=== PATIENT | female | born 1985 | race African-American/Black ===

== ENCOUNTER 2020-11-01 17:14 | Inpatient (IN) ==
[2020-11-01 19:09] LABS: Basophils % 0.4 % (0.0-0.8); Eosinophils # 0.1 10*3/uL (0.0-0.87); Eosinophils % 1.3 % (0.00-10.9); Hematocrit 31.1 VOL% (35.7-47.0); Hemoglobin 9.9 GM/DL (12.0-16.0); Immature Granulocytes % 0.9 %; Immature Granulocytes Absolute 0.05 #; Lymphocytes # 1.5 10*3/uL (1.4-4.0); Lymphocytes % 27.4 % (21.3-54.2); Mean Corpuscular HGB Conc 31.8 GM/DL (32-36); Mean Corpuscular Volume 87.4 FL (87-102); Mean Platelet Volume 10.3 FL (9.6-12.0); Monocytes % 13.5 % (1.7-12.7); Neutrophils % 56.5 % (38.7-73.9); Platelet Count 278 T/CUMM (130-400); Red Blood Count 3.56 MC/CUMM (3.8-5.5); Red Cell Distribution Width 16.3 % (9.3-17.3); White Blood Count 5.5 T/CUMM (4-12)
[2020-11-01 19:21] LABS: Alanine Aminotransferase 17 U/L (13-56); Albumin 2.5 G/DL (3.4-5.0); Alkaline Phosphatase 140 U/L (45-117); Aspartate Amino Transferase 20 U/L (0-37); Bilirubin,Total < 0.39 MG/DL (0.2-1.0); Blood Urea Nitrogen 6 MG/DL (7-18); Calcium 8.5 MG/DL (8.5-10.1); Carbon Dioxide 24 MMOL/L (21-32); Estimated Glom Filtration Rate 165 ML/MIN; Glucose 69 MG/DL (74-106); Potassium 3.8 MMOL/L (3.5-5.1); Sodium 136 MMOL/L (136-145); Total Protein 6.8 G/DL (6.4-8.2); Uric Acid 4.3 MG/DL (2.6-6.0)
[2020-11-01 19:21] LABS: Protein/Creatinine Ratio,Urine 0.2 RATIO
[2020-11-01 20:32] LABS: INR 0.9; PT Patient Result 9.8 SECS (10.5-12.0); Partial Thromboplastin Time 38.5 SECS (23.9-33.8)
[2020-11-01 22:30] LABS: Barbiturates Screen,Urine Negative (Negative); Benzodiazepines Screen,Urine Negative (Negative); Cannabinoid Screen,Urine Negative (Negative); Opiate Screen,Urine Negative (Negative); Phencyclidine Screen,Urine Negative (Negative)
[2020-11-02] MEDS: LABETALOL 200 MG TABLET PO SCH ×2 (00:13→08:19)
[2020-11-02] MEDS: BETAMETH SODIUM PHOS/ACETATE 30 MG/5 ML VIAL IM SCH ×2 (00:13→12:08)
[2020-11-02] MEDS ORDERED: LABETALOL 100 MG TABLET PO ONE (08:39)
[2020-11-02] MEDS ORDERED: ONDANSETRON 4 MG/2 ML VIAL IV PRN (15:30)
[2020-11-02] MEDS: LABETALOL 100 MG TABLET PO SCH ×2 (16:30→21:58)
[2020-11-03] MEDS: LABETALOL 100 MG TABLET PO SCH ×3 (00:07→16:15)
[2020-11-04] MEDS: LABETALOL 100 MG TABLET PO SCH (00:19)
== END 2020-11-04 07:55 | disposition home or self-care (01) | DRG 833 ==
LOC: N.LDOUT 17:14 → N.LD 17:16
PROVIDERS: ADMIT Obstetrics & Gynecology; ATTEND Obstetrics & Gynecology

== ENCOUNTER 2020-12-07 21:47 | Inpatient (IN) ==
[2020-12-07] MEDS ORDERED: LACTATED RINGERS 1,000 ML IV SCH (22:30)
[2020-12-07] MEDS ORDERED: LABETALOL 100 MG/20 ML VIAL IV ONE ×2 (22:35→22:53)
[2020-12-07] MEDS ORDERED: LABETALOL 20 MG/4 ML SYRINGE IV ONE (22:36)
[2020-12-07 22:38] LABS: Bilirubin,Urine Negative (Negative); Blood, Urine Negative (Negative); Glucose,Urine (UA) Negative (Negative); Ketones,Urine Negative (Negative); Mucus,Urine Occasional /LPF (Occasional); Nitrite,Urine Negative (Negative); Protein,Urine Negative; RBC,Urine 1 /HPF (0-4); Squamous Epithelial Cell,Urine Occasional /HPF (0-10); Urine Appearance CLEAR (Clear); Urine Color Yellow (Yellow); Urine Specific Gravity 1.017 (1.001-1.035); Urine Urobilinogen < 2.0 EU/DL (0.2-1.0)
[2020-12-07] MEDS: LABETALOL 100 MG/20 ML VIAL IV PRN ×4 (22:40→23:26)
[2020-12-07 22:46] LABS: Basophils % 0.2 % (0.0-0.8); Eosinophils % 0.4 % (0.00-10.9); Hematocrit 35.8 VOL% (35.7-47.0); Hemoglobin 11.6 GM/DL (12.0-16.0); Immature Granulocytes % 1.1 %; Lymphocytes # 1.4 10*3/uL (1.4-4.0); Lymphocytes % 15.1 % (21.3-54.2); Mean Corpuscular HGB Conc 32.4 GM/DL (32-36); Mean Corpuscular Volume 86.9 FL (87-102); Mean Platelet Volume 10.6 FL (9.6-12.0); Monocytes % 9.1 % (1.7-12.7); Neutrophils % 74.1 % (38.7-73.9); Platelet Count 169 T/CUMM (130-400); Red Blood Count 4.12 MC/CUMM (3.8-5.5); Red Cell Distribution Width 16.2 % (9.3-17.3); White Blood Count 9.3 T/CUMM (4-12)
[2020-12-07 22:57] LABS: INR 0.9; PT Patient Result 9.8 SECS (10.5-12.0); Partial Thromboplastin Time 39.2 SECS (23.9-33.8)
[2020-12-07] MEDS ORDERED: LABETALOL 20 MG/4 ML SYRINGE IV PRN (23:11)
[2020-12-07] MEDS ORDERED: LABETALOL 100 MG/20 ML VIAL IV PRN ×2 (23:11)
[2020-12-07 23:28] LABS: Albumin 2.9 G/DL (3.4-5.0); Bilirubin,Total 0.6 MG/DL (0.20-1.00); Calcium 9.2 MG/DL (8.5-10.1); Osmolality,Calculated 272.7 MOS/KG (273-304); Potassium 3.6 MMOL/L (3.5-5.1); Total Protein 7.5 G/DL (6.4-8.2)
[2020-12-07 23:58] LABS: Barbiturates Screen,Urine Negative (Negative); Benzodiazepines Screen,Urine Negative (Negative); Cannabinoid Screen,Urine Negative (Negative); Opiate Screen,Urine Negative (Negative); Phencyclidine Screen,Urine Negative (Negative)
[2020-12-08 00:07] LABS: Protein/Creatinine Ratio,Urine 0.2 RATIO
[2020-12-08] MEDS ORDERED: hydrALAZINE 20 MG/1 ML VIAL ONE (00:11)
[2020-12-08] MEDS ORDERED: hydrALAZINE 20 MG/1 ML VIAL IV ONE (00:13)
[2020-12-08] MEDS ORDERED: CITRIC ACID/SODIUM CITRATE 30 ML UDCUP ONE (00:19)
[2020-12-08] MEDS ORDERED: ceFAZolin 2,000 MG/50 ML DUPLEX IV ONE ×2 (00:19→02:49)
[2020-12-08] MEDS ORDERED: miSOPROStoL 200 MCG TABLET ONE (00:19)
[2020-12-08] MEDS ORDERED: SODIUM CHLORIDE 0.9% 0 ML IV ONE (00:20)
[2020-12-08] MEDS ORDERED: METHYLERGONOVINE 0.2 MG/1 ML AMP ONE (00:20)
[2020-12-08] MEDS ORDERED: CITRIC ACID/SODIUM CITRATE 30 ML UDCUP PO ONE (00:20)
[2020-12-08] MEDS ORDERED: OXYTOCIN/LR 20 UNIT/1,000 ML BAG IV ONE ×3 (00:20→01:47)
[2020-12-08] MEDS ORDERED: FAMOTIDINE 20 MG/2 ML VIAL IV ONE ×2 (00:20→00:21)
[2020-12-08] MEDS ORDERED: TRANEXAMIC ACID 1,000 MG/10 ML VIAL ONE (00:20)
[2020-12-08] MEDS ORDERED: CARBOPROST TROMETHAMINE 250 MCG/ML AMP IM ONE (00:21)
[2020-12-08] MEDS ORDERED: ONDANSETRON 4 MG/2 ML VIAL ONE (00:32)
[2020-12-08] MEDS ORDERED: MIDAZOLAM 2 MG/2 ML VIAL ONE (01:16)
[2020-12-08] MEDS ORDERED: LACTATED RINGERS 1,000 ML IV ONE (01:35)
[2020-12-08] MEDS ORDERED: propofoL 200 MG/20 ML VIAL IV ONE (01:42)
[2020-12-08] MEDS ORDERED: MEASLES/MUMPS/RUBELLA VACCINE 0.5 ML VIAL SUBCUT ONE (01:47)
[2020-12-08] MEDS ORDERED: IBUPROFEN 800 MG TABLET PO PRN (01:47)
[2020-12-08] MEDS ORDERED: BENZOCAINE 20%/MENTHOL 0.5% SPRAY 56 GM CAN TOP PRN (01:47)
[2020-12-08] MEDS ORDERED: WITCH HAZEL PADS 100/JAR TOP PRN (01:47)
[2020-12-08] MEDS ORDERED: RHO(D) IMMUNE GLOBULIN 300 MCG SYRINGE IM ONE (01:47)
[2020-12-08] MEDS ORDERED: DIPH/TET/ACEL PERT BOOSTER VACCINE 0.5 ML VIAL IM ONE (01:47)
[2020-12-08] MEDS ORDERED: HYDROCORTISONE 2.5% RECTAL CREAM 30 GM TUBE TOP PRN (01:47)
[2020-12-08] MEDS ORDERED: ACETAMINOPHEN 325 MG TABLET PO PRN (01:47)
[2020-12-08] MEDS ORDERED: BISACODYL 10 MG SUPP RECTAL PRN (01:47)
[2020-12-08] MEDS ORDERED: LANOLIN 50% CREAM 0.3 OZ TUBE TOP PRN (01:47)
[2020-12-08] MEDS ORDERED: oxyCODONE/ACETAMINOPHEN 5-325 MG TABLET PO PRN (01:47)
[2020-12-08] MEDS ORDERED: OXYTOCIN/LR 20 UNIT/1,000 ML BAG IV PRN (01:50)
[2020-12-08 01:52] LABS: Cord Arterial Blood HCO3 23.1 MMOL/L
[2020-12-08 01:54] LABS: Cord Venous Blood HCO3 21.7 MMOL/L; Cord Venous Blood PCO2 46.2 MMHG
[2020-12-08] MEDS: KETOROLAC 30 MG/1 ML VIAL IV SCH ×4 (02:20→20:54)
[2020-12-08] MEDS: ACETAMINOPHEN 500 MG TABLET PO SCH ×4 (02:26→20:54)
[2020-12-08 03:07] LABS: Bilirubin,Urine Negative (Negative); Blood, Urine Negative (Negative); Glucose,Urine (UA) Negative (Negative); Ketones,Urine Negative (Negative); Mucus,Urine Occasional /LPF (Occasional); Nitrite,Urine Negative (Negative); Protein,Urine Negative; RBC,Urine 2 /HPF (0-4); Urine Appearance CLEAR (Clear); Urine Color Straw (Yellow); Urine Specific Gravity 1.006 (1.001-1.035); Urine Urobilinogen < 2.0 EU/DL (0.2-1.0)
[2020-12-08] MEDS: ONDANSETRON 4 MG/2 ML VIAL IV PRN ×2 (03:49→12:13)
[2020-12-08] MEDS: LABETALOL 100 MG TABLET PO SCH ×3 (05:57→21:02)
[2020-12-08 06:36] LABS: Basophils % 0.1 % (0.0-0.8); Eosinophils % 0.1 % (0.00-10.9); Hematocrit 29.2 VOL% (35.7-47.0); Hemoglobin 9.5 GM/DL (12.0-16.0); Lymphocytes # 1.1 10*3/uL (1.4-4.0); Lymphocytes % 10.9 % (21.3-54.2); Mean Corpuscular HGB Conc 32.5 GM/DL (32-36); Mean Corpuscular Volume 85.9 FL (87-102); Mean Platelet Volume 10.9 FL (9.6-12.0); Monocytes % 7.2 % (1.7-12.7); Neutrophils % 80.7 % (38.7-73.9); Platelet Count 141 T/CUMM (130-400); Red Cell Distribution Width 16.4 % (9.3-17.3); White Blood Count 9.7 T/CUMM (4-12)
[2020-12-08 11:04] LABS: Hypochromasia 1+; Microcytosis Slight; Platelet Estimate Adequate
[2020-12-08] MEDS ORDERED: PROMETHAZINE 25 MG/1 ML VIAL IM PRN (15:29)
[2020-12-08] MEDS: DOCUSATE SODIUM 100 MG CAPSULE PO SCH (21:02)
[2020-12-09] MEDS: oxyCODONE/ACETAMINOPHEN 5-325 MG TABLET PO PRN ×3 (05:52→21:20)
[2020-12-09] MEDS: LABETALOL 100 MG TABLET PO SCH ×3 (05:52→21:20)
[2020-12-09] MEDS: DOCUSATE SODIUM 100 MG CAPSULE PO SCH ×2 (07:41→20:29)
[2020-12-09] MEDS: MAGNESIUM HYDROXIDE SUSP 30 ML UDCUP PO PRN (09:00)
[2020-12-09] MEDS: IRON (CARBONYL)/VIT C/B12/FA TABLET PO SCH (17:01)
[2020-12-10] MEDS: LABETALOL 100 MG TABLET PO SCH (05:13)
[2020-12-10] MEDS: oxyCODONE/ACETAMINOPHEN 5-325 MG TABLET PO PRN (05:13)
[2020-12-10 09:15] VITALS: BP 135/86
[2020-12-10] MEDS: IRON (CARBONYL)/VIT C/B12/FA TABLET PO SCH (11:17)
[2020-12-10] MEDS: MAGNESIUM HYDROXIDE SUSP 30 ML UDCUP PO PRN (11:17)
[2020-12-10] MEDS: DOCUSATE SODIUM 100 MG CAPSULE PO SCH (11:17)
== END 2020-12-10 13:10 | disposition home or self-care (01) | DRG 788 ==
LOC: N.LDOUT 21:47 → N.LD 21:48 → N.OB 12-08 12:04
PROVIDERS: ADMIT Specialist; ATTEND Specialist
PROC: LDCSECT (ICD-10-PCS; 2020-12-08 00:10)